=== PATIENT | female | born 1950 | race Caucasian/White ===

== ENCOUNTER 2016-12-16 16:06 | Emergency (ER) | payer OTHER ==
[2016-12-16 16:37] VITALS: BP 121/73
--- NOTE | 2016-12-16 16:49 | UC ---
UC General HPI - HPI Summary HPI Summary: complaint of rash on her buttocks both sides that started 4-5 days ago last night started to spread into her legs and lower back extremely itchy especially at night can't think of exposure to plant material denies any new medications, soaps, creams,foods took some benadryl without any relief denies fever and fatigue - History of Current Complaint Chief Complaint: UCRash Stated Complaint: RASH ON LEGS AND BOTTOM Time Seen by Provider: 12/16/16 16:36 Hx Obtained From: Patient - Allergy/Home Medications Allergies/Adverse Reactions: Allergies Allergy/AdvReac Type Severity Reaction Status Date / Time Prednisone Allergy Agitation Verified 06/15/15 15:18 iv dye/contrast Allergy Hives Uncoded 06/15/15 15:18 Home Medications: Home Medications Diphenhydramine HCl [Benadryl Allergy 25 MG TAB] 25 mg PO 12/16/16 [History] PMH/Surg Hx/FS Hx/Imm Hx Previously Healthy: Yes - osteoarhtiris - Surgical History Surgical History: Yes Surgery Procedure, Year, and Place: tonsillectomy. D&C X2. bladder (URETERAL DILATION). left ring finger joint replacement. right shoulder decompression; Back Surgery for Spinal Stenosis and removed a synovial cyst October 23, 2012 at [facility], 10/29 FOR ARTHRITIS- LSP - Family History Known Family History: Positive: Other - cancer Negative: Cardiac Disease, Hypertension, Diabetes - Social History Occupation: Employed Full-time Lives: With Family Alcohol Use: None Substance Use Type: None Substance Use Comment - Amount & Last Used: Occasional use of oxycodone to manage abdominal pain Smoking Status (MU): Never Smoked Tobacco - Immunization History Vaccination Up to Date: Yes Review of Systems Constitutional: Negative Skin: Rash Eyes: Negative ENT: Negative Respiratory: Negative Cardiovascular: Negative Gastrointestinal: Negative Genitourinary: Negative Motor: Negative Neurovascular: Negative Musculoskeletal: Negative Neurological: Negative Psychological: Negative All Other Systems Reviewed And Are Negative: Yes Physical Exam Triage Information Reviewed: Yes Appearance: No Pain Distress, Well-Nourished, Obese Vital Signs: Initial Vital Signs Temp 97.8 F 12/16/16 16:34 Pulse 72 12/16/16 16:34 Resp 18 12/16/16 16:34 BP 121/73 12/16/16 16:34 Pulse Ox 98 12/16/16 16:34 Vital Signs Reviewed: Yes Eyes: Positive: Conjunctiva Clear ENT: Positive: Pharynx normal, TMs normal Neck: Positive: No Lymphadenopathy Respiratory: Positive: Lungs clear, Normal breath sounds, No respiratory distress, No accessory muscle use Cardiovascular: Positive: RRR, No Murmur, Pulses Normal, Brisk Capillary Refill Musculoskeletal: Positive: No Edema Neurological: Positive: Alert Psychological Exam: Normal Skin: Positive: Other - buttocks, back of legs with small erythematous papules some with tunneling and in lines Course/Dx - Course Course Of Treatment: exam completed. rash appears to be scabies- will treat with permetherin and benadryl followup with PCP - Differential Dx - Multi-Symptom Provider Diagnoses: scabies Discharge - Discharge Plan Condition: Stable Disposition: HOME Prescriptions: Permethrin 5% CREAM* 1 applic TOPICAL SEE INSTRUCTIONS #1 tube Patient Education Materials: Scabies (ED) Referrals: Maik Capone MD [Primary Care Provider] - Additional Instructions: Please use cream as directed take benadryl as needed for itching Increase fluids and rest Take acetaminophen or ibuprofen for fever or pain Please review your discharge instructions. If your symptoms do not improve please call your primary care provider or return to urgent care.
== END 2016-12-16 17:08 | disposition home or self-care (01) ==
LOC: UCEAST 16:06
DX: B86 Scabies (principal)
CPT/HCPCS: 99212; G0463

== ENCOUNTER → 2018-02-20 08:07 | Day surgery (SDC) | payer MEDICARE, OTHER ==
[~2018-02-20 08:07] MED LIST: Acetaminophen TAB* 325 MG ONE; Buffered Lidocaine 0.9% SYRIN* 5 ML/SYR SYRINGE INTRADERM ONE; Famotidine IV* 10 MG/ML 2 ML (20 mg) IV ONE; Famotidine IV* 10 MG/ML 2 ML (20 mg) ONE; Gelatin ADSORBABLE (OPHTH)* OPHTH.FILM ONE; Gelfoam 12-7 ADSORBABL SPONGE* 1 EA SPONGE ONE; Lidocaine 2% EPI 1:200000 MPF*10-20 ML VIAL ONE; Lidocaine 4% TOPICAL* 50 ML TOP.SOLN ONE; Metoclopramide IV* 5 MG/ML 2 ML VIAL IV SLOW PU ONE; Metoclopramide IV* 5 MG/ML 2 ML VIAL ONE; Midazolam* 1 MG/ML 2 ML VIAL (2 MG) ONE; Ondansetron INJ* 2 MG/ML VIAL ONE; Oxymetazoline 0.05% NASAL SPR* 15 ML BTL ONE; Propofol* 10 MG/ML 20 ML BTL IV PUSH ONE; Scopolamine 1.5 mg* PATCH ONE; Scopolamine 1.5 mg* PATCH TRANSDERM ONE; Triamcinolone Acetonide* 40 MG/ML 1 ML VIAL ONE; fentaNYL* 50 MCG/ML 2 ML VIAL (100 MCG VIAL) ONE
[2018-02-20 13:24] VITALS: BP 149/73
--- NOTE | 2018-02-20 14:31 | OP ---
DATE OF OPERATION: 02/20/18 - [facility] DATE OF : 52 SURGEON: Ayad Rowe MD PRE-OP DIAGNOSES: Chronic sinusitis and chronic right-sided serous effusion. POST-OP DIAGNOSES: Chronic sinusitis and chronic right-sided serous effusion. OPERATIVE PROCEDURE: Right ear tympanostomy tube, the T tube, and bilateral video endoscopic maxillary antrostomy, and bilateral video endoscopic anterior ethmoidectomy. INDICATIONS: This 67-year-old female with longstanding history of sinus complaints as well as persistent right-sided eustachian tube dysfunction with serous effusion, previous tympanostomy tube. DESCRIPTION OF PROCEDURE: The patient was taken to the operating room, general anesthetic was given, the patient was intubated. Right ear was examined under microscope. Anterior-inferior myringotomy incision was created. Small amount of serous effusion removed. T-tube was placed. Small cotton applied. We turned our attention to the sinuses. A 0-degree telescope, 30-degree telescope, endoscopic sinus surgery instruments including microshaver were used. The CT scan of the paranasal sinuses was available for review in the OR. The patient's nose was decongested with Afrin-placed pledgets. Initially 2% lidocaine with epinephrine was infiltrated into the mucosa on the uncinate side , on both sides, then the middle turbinate region. We turned our attention to the left side, the uncinate process was removed anterior. The microshaver was used to completely resect it. The antrostomy then further enlarged and copious irrigation of the antrum was carried out. Then, turned our attention to the ethmoid. The ethmoidal bulla was resected, coursing superior in the nasal frontal duct area and laterally towards the lamina papyracea. The area was packed with Gelfilm and Gelfoam was used as a spacer, this was soaked with Kenalog 40 mg/mL. We turned our attention to the right side, here too again, the uncinate process was peeled down anteriorly. Microshaver was used to remove the antrum mucosa and further enlarged. The ethmoidal resection was carried out coursing through the bulla of the ethmoid and then towards the ground lamella posteriorly and towards the nasal frontal duct superiorly and towards the lamina papyracea laterally. Adequate resection of the ethmoid was carried out. Gelfilm and Gelfoam were used as a spacer. This was again soaked with Kenalog. The patient was awakened and sent to Recovery in stable condition. Instrument and sponge counts were correct. Blood loss was minimal. [id number]/[facility] #: [id number] [facility]
== END | disposition home or self-care (01) ==
LOC: OR 08:07
PROVIDERS: ATTEND Otolaryngology
DX: J32.0 Chronic maxillary sinusitis (principal); J32.2 Chronic ethmoidal sinusitis; H65.21 Chronic serous otitis media, right ear; J31.0 Chronic rhinitis; H69.83 Other specified disorders of Eustachian tube, bilateral; R01.1 Cardiac murmur, unspecified
CPT/HCPCS: A9270-GY; C1776; J2250; J2405; J2704; J2765; J3010; J3301

== ENCOUNTER 2019-04-28 10:33 | Emergency (ER) | payer MEDICARE ==
[2019-04-28 11:09] LABS: ABS Eosinophils 0.2 10^3/ul (0-0.6); ABS Lymphocytes 1.5 10^3/ul (1.0-4.8); ABS Monocytes 0.4 10^3/ul (0-0.8); ABS Neutrophils 3.9 10^3/ul (1.5-7.7); Eosinophil % 3.5 %; Hematocrit 45 % (35-47); Lymphocyte % 24.5 %; Mean Corpuscular HGB Conc 33 g/dL (31-36); Mean Corpuscular Hemoglobin 30 pg (27-31); Mean Corpuscular Volume 90 fL (80-97); Mean Platelet Volume 8.6 fL (7.4-10.4); Nucleated Red Blood Cells % 0.1; Platelet Count 223 10^3/uL (150-450); Red Cell Distribution Width 14 % (10-15); White Blood Count 6.1 10^3/uL (3.5-10.8)
[2019-04-28 11:23] LABS: INR 1.19 (0.82-1.09)
[2019-04-28 11:25] LABS: Troponin I 0.01 ng/mL (<0.04)
[2019-04-28 11:29] LABS: Albumin 4.5 g/dL (3.2-5.2); Albumin/Globulin Ratio 1.6 (1-3); BUN/Creatinine Ratio 15.1 (8-20); Calcium 9.6 mg/dL (8.6-10.3); EGFR African American 72.5 (>60); Globulin 2.9 g/dL (2-4); Potassium 3.8 mmol/L (3.5-5.0); Total Bilirubin 0.6 mg/dL (0.2-1.0); Total Protein 7.4 g/dL (6.4-8.9)
--- OUTSIDE RECORDS SUMMARY | 2019-04-28 11:31 | XMS REPORT | Continuity of Care Document ---
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 Problems Provider Date Impacted Pretty [place] NP Onset: 10/10/2013 Social History Type Date Description Comments Sex Unknown Tobacco Use Start: Unknown Never Smoked Cigarettes Tobacco Use Start: Unknown has never smoked cigars Tobacco Use Start: Unknown has never smoked a pipe Smokeless Tobacco has never used smokeless tobacco ETOH Use does not drink alcohol Recreational Drug Use denies drug use Tobacco Use Start: Unknown Patient has never smoked Allergies, Adverse Reactions, Alerts Active Allergies Reaction Severity Comments Date Prednisone 12/06/2005 Medications Active Medications SIG Qnty Indications Ordering Date Provider Fluticasone 2 puffs both sides 16units J32.0 Jae, 11/05/2017 Propionate once a day Ayad LINCOLN 50mcg/Act Suspension Metoclopramide HCL Take one tablet 60tabs Pearl 04/25/2017 10mg daily as needed for F.N.P., Anny Tablets nausea Makenna Vagifem 1 tablet 30tabs Unknown 05/26/2010 10mcg Tablets intravaginally twice a week Multivitamins as directed Unknown 12/05/2005 Imitrex as needed 27tabs Maik Capone 07/08/1997 100mg Tablets Elrm OTC Sleep as needed Unknown 50mg Tablets Sertraline HCL Maik Capone 25mg MD Tablets Immunizations Description No Information Available Vital Signs Date Vital Result Comment 04/17/2019 1:33pm Weight 168.00 lb Weight 76.205 kg Height 66 inches 5'6" Height in cm's 167.6 cm BMI (Body Mass Index) 27.1 kg/m2 04/11/2018 2:09pm Weight 168.00 lb Weight 76.205 kg Height 66 inches 5'6" Height in cm's 167.6 cm BMI (Body Mass Index) 27.1 kg/m2 Results Description No Information Available Procedures Description No Information Available Medical Devices Description No Information Available Encounters Type Date Location Provider Dx Diagnosis Office Visit 04/17/2019 [place] Ayad Rowe H69.83 Other specified 1:30p 06/18/07 disorders of Eustachian tube, bilateral H72.91 Unspecified perforation of tympanic membrane, right ear 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 Assessments Date Code Description Provider 04/17/2019 H69.83 Other specified disorders of Eustachian tube, Ayad Rowe MD bilateral 04/17/2019 H72.91 Unspecified perforation of tympanic membrane, Ayad Rowe MD right ear 04/17/2019 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 Ayad Rowe MD Plan of Treatment Future Appointment(s):05/01/2019 11:30 am - ROBERTO Dimas at [place] - Ayad Rowe MDH69.83 Other specified disorders of Eustachian tube, [id number] Unspecified perforation of tympanic membrane, right earComments:Patient with a perforation and significant adhesivet changes with long-standing history of eustachian tube dysfunction I suspect that at this point I would just like to keep an eye on her ear, scheduled her for hearing evaluation possible hearing aids.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
--- NOTE | 2019-04-28 13:04 | ED ---
Complex/Multi-Sys Presentation - HPI Summary HPI Summary: Patient is a 69 y/o F presenting to [facility] with complaints of chest pressure, palpitations for the past four months. She states that the palpitations have been intermittent but claims the pressure has been constant. Patient also reports that she has been experiencing nausea, SOB with exertion, and numbness of her lips. Chest pressure radiates to her throat. Sx are reported to have been progressively worsening over the past 3-4 weeks. She denies constipation, diarrhea, vomiting, rashes, and BLE edema. Patient states that she had an "event " with her son back in January 2019 and Sx subsequently onset after that. Patient states that she tried taking Zoloft but was experiencing too many side effects. She just started a new medication three days ago for her psychiatric issues but cannot recall its name. Patient reports that she is meeting with a counselor as well. On triage, pain is rated 6/10, nothing is noted to aggravate/ alleviate Sx. In room, pulse 69, o2 98 on RA, BP 181/61. Home medications and allergies are reviewed. - History Of Current Complaint Chief Complaint: EDChestPainROMI Time Seen by Provider: 04/28/19 10:48 Hx Obtained From: Patient Onset/Duration: Lasting Weeks - chest pressure, palpitations Timing: Constant - chest pressure, Intermittent, Lasting: - palpitations Severity Currently: Moderate Location: Pain At: - chest Character: Pressure Aggravating Factor(s): nothing Alleviating Factor(s): nothing Associated Signs And Symptoms: Positive: SOB - with exertion, Chest Pain, Palpitations, Nausea, Other - positive - lip numbness; negative - constipation, rashes. Negative: Edema, Vomiting, Diarrhea - Allergies/Home Medications Allergies/Adverse Reactions: Allergies Allergy/AdvReac Type Severity Reaction Status Date / Time prednisone AdvReac Intermediate Agitation Verified 04/28/19 10:42 iv dye/contrast AdvReac Intermediate Hives Uncoded 02/20/18 09:23 Home Medications: Home Medications buPROPion SR TAB* [Wellbutrin SR TAB*] 100 mg PO DAILY 04/28/19 [History Confirmed 04/28/19] PMH/Surg Hx/FS Hx/Imm Hx Endocrine/Hematology History: Denies: Hx Diabetes Cardiovascular History: Reports: Other Cardiovascular Problems/Disorders - HEART MURMUR Denies: Hx Hypertension, Hx Pacemaker/ICD Respiratory History: Reports: Hx Seasonal Allergies Denies: Hx Asthma History: Denies: Hx Dialysis, Hx Renal Disease Musculoskeletal History: Reports: Hx Arthritis, Hx Back Problems - low back pain , Hx Fibromyalgia, Other Musculoskeletal History - leg pain Denies: Hx Scoliosis Sensory History: Reports: Hx Contacts or Glasses - glasses Denies: Hx Hearing Aid Opthamlomology History: Reports: Hx Contacts or Glasses - glasses Neurological History: Reports: Hx Migraine, Hx Nerve Disease - fibromyalgia, Other Neuro Impairments/Disorders Denies: Hx Headaches Psychiatric History: Denies: Hx Panic Disorder - Cancer History Hx Chemotherapy: No Hx Radiation Therapy: No - Surgical History Surgery Procedure, Year, and Place: tonsillectomy. D&C X2. bladder (URETERAL DILATION). left ring finger joint replacement. right shoulder decompression; Back Surgery for Spinal Stenosis and removed a synovial cyst October 23, 2012 at [facility], 10/29 FOR ARTHRITIS- LSP Hx Anesthesia Reactions: Yes - has nausea and vomiting- had a scopalamine patch - helped Infectious Disease History: No Infectious Disease History: Denies: Traveled Outside the [place] in Last 30 Days - Family History Known Family History: Positive: Other - cancer Negative: Cardiac Disease, Hypertension, Diabetes - Social History Alcohol Use: None Substance Use Type: Reports: None Substance Use Comment - Amount & Last Used: Occasional use of oxycodone to manage abdominal pain Smoking Status (MU): Never Smoked Tobacco Review of Systems Positive: Palpitations, Chest Pain Positive: Shortness Of Breath - with exertion Positive: Nausea. Negative: Vomiting, Diarrhea Negative: Edema Negative: Rash All Other Systems Reviewed And Are Negative: Yes Physical Exam - Summary Physical Exam Summary: Constitutional: Well-developed, Well-nourished, Alert. (-) Distressed Skin: Warm, Dry HENT: Normocephalic; Atraumatic Eyes: Conjunctiva normal Neck: Musculoskeletal ROM normal neck. (-) JVD, (-) Stridor, (-) Tracheal deviation Cardio: Rhythm regular, rate normal, Heart sounds normal; Intact distal pulses; The pedal pulses are 2+ and symmetric. Radial pulses are 2+ and symmetric. (-) Murmur Pulmonary/Chest wall: Effort normal. (-) Respiratory distress, (-) Wheezes, (-) Rales Abd: Soft, (-) tenderness, (-) Distension, (-) Guarding, (-) Rebound Musculoskeletal: (-) Edema Lymph: (-) Cervical adenopathy Neuro: Alert, Oriented x3 Psych: Anxious appearing Triage Information Reviewed: Yes Vital Signs On Initial Exam: Initial Vitals Temp Pulse Resp BP Pulse Ox 97.3 F 71 16 155/110 100 04/28/19 10:38 04/28/19 10:38 04/28/19 10:38 04/28/19 10:38 04/28/19 10:38 Vital Signs Reviewed: Yes Procedures - Sedation Patient Received Moderate/Deep Sedation with Procedure: No Diagnostics - Vital Signs Vital Signs Temp Pulse Resp BP Pulse Ox 04/28/19 10:54 67 19 181/61 98 04/28/19 10:52 12 04/28/19 10:38 97.3 F 71 16 155/110 100 - Laboratory Lab Results: Lab Results 04/28/19 04/28/19 04/28/19 Range/Units 10:45 10:45 10:45 WBC 6.1 (3.5-10.8) 10^3/uL RBC 5.00 H (3.70-4.87) 10^6 /uL Hgb 15.0 (12.0-16.0) g/dL Hct 45 (35-47) % MCV 90 (80-97) fL MCH 30 (27-31) pg MCHC 33 (31-36) g/dL RDW 14 (10-15) % Plt Count 223 (150-450) 10^3/uL MPV 8.6 (7.4-10.4) fL Neut % (Auto) 64.8 % Lymph % (Auto) 24.5 % Mayes % (Auto) 6.8 % Eos % (Auto) 3.5 % Baso % (Auto) 0.4 % Absolute Neuts (auto) 3.9 (1.5-7.7) 10^3/ul Absolute Lymphs (auto) 1.5 (1.0-4.8) 10^3/ul Absolute Monos (auto) 0.4 (0-0.8) 10^3/ul Absolute Eos (auto) 0.2 (0-0.6) 10^3/ul Absolute Basos (auto) 0.0 (0-0.2) 10^3/ul Absolute Nucleated RBC 0.0 10^3/ul Nucleated RBC % 0.1 INR (Anticoag Therapy) 1.19 H (0.82-1.09) Sodium 140 (135-145) mmol/L Potassium 3.8 (3.5-5.0) mmol/L Chloride 103 (101-111) mmol/L Carbon Dioxide 30 (22-32) mmol/L Anion Gap 7 (2-11) mmol/L BUN 14 (6-24) mg/dL Creatinine 0.93 (0.51-0.95) mg/dL Est GFR ( Amer) 72.5 (>60) Est GFR (Non-Af Amer) 60.0 (>60) BUN/Creatinine Ratio 15.1 (8-20) Glucose 103 H (70-100) mg/dL Calcium 9.6 (8.6-10.3) mg/dL Total Bilirubin 0.60 (0.2-1.0) mg/dL AST 18 (13-39) U/L ALT 12 (7-52) U/L Alkaline Phosphatase 68 (34-104) U/L Troponin I 0.01 (<0.04) ng/mL Total Protein 7.4 (6.4-8.9) g/dL Albumin 4.5 (3.2-5.2) g/dL Globulin 2.9 (2-4) g/dL Albumin/Globulin Ratio 1.6 (1-3) Result Diagrams: 04/28/19 10:45 04/28/19 10:45 Lab Statement: Any lab studies that have been ordered have been reviewed, and results considered in the medical decision making process. - Radiology CXR Radiology Interpretation Completed By: Radiologist Summary of Radiographic Findings: IMPRESSION: NO ACTIVE CARDIOPULMONARY DISEASE. THIS REPORT WAS REVIEWED BY ED PHYSICIAN. - EKG 1035 Cardiac Rate: NL - rate of 66 BPM EKG Rhythm: Sinus Rhythm Ectopy: None Summary of EKG Findings: EKG showed NSR with rate of 66 BPM, normal axis, normal UT interval, normal QRS, normal QTc, normal ST-T. This EKG was reviewed and interpreted by Dr. Ram. Re-Evaluation - Re-Evaluation First Eval Re-Evaluation Time: 14:10 Change: Improved Comment: Some improvement of pain is reported, but she states that she still continues with some pain which she characterizes as a burning sensation at this time. GI cocktail to be given. Second Eval Re-Evaluation Time: 14:49 Change: Improved Comment: Patient reports improvement of Sx and that she is ready for discharge. Complex Multi-Symp Course/Dx Course Of Treatment: Patient is a 69 y/o F presenting to [facility] with complaints of chest pressure, palpitations for the past four months. She states that the palpitations have been intermittent but claims the pressure has been constant. Patient also reports that she has been experiencing nausea, SOB with exertion, and numbness of her lips. Chest pressure radiates to her throat. Sx are reported to have been progressively worsening over the past 3-4 weeks. She denies constipation, diarrhea, vomiting, rashes, and BLE edema. Patient states that she had an "event" with her son back in January 2019 and Sx subsequently onset after that. Patient is noted to be anxious-appearing on physical exam. EKG showed NSR with rate of 66 BPM, normal axis, normal UT interval, normal QRS , normal QTc, normal ST-T. CXR IMPRESSION: NO ACTIVE CARDIOPULMONARY DISEASE. Bloodwork was obtained and WNL with exception of RBC 5, INR 1.19, and glucose 103. First and second trop were negative. During ED course, patient received Maalox Plus 30 mL PO. She reported improvement of Sx and was discharged to home with PCP follow up. - Diagnoses Provider Diagnoses: Chest pain Discharge ED - Sign-Out/Discharge Documenting (check all that apply): Patient Departure - discharge - Discharge Plan Condition: Stable Disposition: HOME Patient Education Materials: Chest Pain (ED) Print Language: CENTRAL AFRICAN Referrals: Maik Capone MD [Primary Care Provider] - - Billing Disposition and Condition Condition: STABLE Disposition: Home - Attestation Statements Document Initiated by Azulibe: Yes Documenting Scribe: SPARKLE MANNING Provider For Whom Nohemy is Documenting (Include Credential): MABLE SPENCER MD Scribe Attestation: Bill, morena HAMLINed for MABLE RAM MD on 04/28/19 at 1748. Scribe Documentation Reviewed: Yes Provider Attestation: The documentation as recorded by the SPARKLE hanna accurately reflects the service I personally performed and the decisions made by me, MABLE RAM MD Status of Scribe Document: Viewed
[2019-04-28] MEDS ORDERED: Al Hydrox/Mg Hydrox/Simet LIQ* 30 ML UDC PO ONE (14:16)
[2019-04-28 15:31] VITALS: BP 137/74
== END 2019-04-28 15:31 | disposition home or self-care (01) ==
LOC: ED 10:33
DX: R07.9 Chest pain, unspecified (principal); Z79.899 Other long term (current) drug therapy; Z88.8 Allergy status to other drugs, medicaments and biological substances; Z91.041 Radiographic dye allergy status
CPT/HCPCS: 36415; 71045; 80053; 84484; 85025; 85610; 93005; 99282; A9270-GY